=== PATIENT | female | born 1975 | race Caucasian/White ===

== ENCOUNTER 2021-09-09 19:18 | Emergency (ER) | payer OTHER ==
[~2021-09-09] VITALS: Ht 167.6 cm; Wt 132.4 kg
[2021-09-09 20:45] LABS: MCH 13.2 pg (26.0-34.0); MCHC 26.3 g/dL (28.0-37.0); MCV 50.2 fL (80.0-100.0); PLATELET COUNT 354 thou/uL (150-400); RBC 4.57 mil/uL (4.20-5.00); RDW 23.4 % (10.5-14.5); WBC 4.7 thou/uL (4.0-11.0)
[2021-09-09 20:46] LABS: CALCIUM 8.6 mg/dL (8.5-10.1); POTASSIUM 3.3 mmol/L (3.5-5.1)
[2021-09-09 20:47] LABS: URINE BILIRUBIN NEGATIVE (Negative); URINE BLOOD NEGATIVE (Negative); URINE CLARITY CLEAR; URINE COLOR YELLOW; URINE GLUCOSE-RANDOM* NEGATIVE (Negative); URINE KETONES NEGATIVE (Negative); URINE LEUKOCYTES-REFLEX NEGATIVE (Negative); URINE NITRITE-REFLEX NEGATIVE (Negative); URINE PROTEIN (DIPSTICK) TRACE (Negative); URINE SPECIFIC GRAVITY >= 1.030 (1.005-1.035); URINE UROBILINOGEN 0.2 E.U./dl (0.2-1.0)
[2021-09-09 20:52] LABS: ALBUMIN 3.3 g/dL (3.4-5.0); TOTAL BILIRUBIN 0.5 mg/dL (0.2-1.0)
[2021-09-09 22:11] LABS: APTT 30.3 Seconds (24.5-32.8); INR 1.07; PROTIME 11.6 Seconds (10.5-12.1)
[2021-09-09 22:34] LABS: ABSOLUTE NEUTROPHILS 3.6 thou/uL (1.4-8.2)
[2021-09-09 22:35] LABS: ANISOCYTOSIS 3+; HYPOCHROMASIA 3+; MICROCYTES 3+; OVALOCYTES 1+; PLATELET ESTIMATE NORMAL; POIKILOCYTOSIS 2+; SCHISTOCYTES 1+
[2021-09-10 00:16] VITALS: BP 101/57; BP 102/56; BP 111/67; BP 125/81; BP 136/70
[2021-09-10 04:00] VITALS: BP 109/56
--- NOTE | 2021-09-10 14:58 | EKG ---
[address] [address] ELECTROCARDIOGRAM REPORT Name: TIP FREEMAN Room #: [facility]#: [id number] Admission: 09/09/21 Attend Phys: Discharge: 09/10/21 Date of : 71 Report #: [id number] ED Test Date: 2021-09-09 Test Time: 19:29:17 Pat Name: TIP FREEMAN Department: Room: Gender: F Ambulance Operations Supervisor: quin[place] : 1975 Requested By: Alan Awan Order Number: [id number] MD: Gilberto Esposito Measurements Intervals [place] Rate: 119 P: 39 DE: 136 QRS: 1 QRSD: 88 T: 31 QT: 306 QTc: 431 Interpretive Statements Sinus tachycardia No previous ECG available for comparison Electronically Signed On 09-10-2021 14:57:55 CDT by Gilberto Esposito [email or web address] <ELECTRONICALLY SIGNED> By: Gilberto Esposito MD, [facility] 09/10/21 1457 1929 1929 Gilberto Esposito MD, FACC /EPI
== END 2021-09-10 04:07 | disposition home or self-care (01) ==
LOC: ER 19:18
PROVIDERS: Emergency Medicine
DX: U07.1 COVID-19 (principal); K80.00 Calculus of gallbladder with acute cholecystitis without obstruction; R10.31 Right lower quadrant pain; D64.9 Anemia, unspecified; Z90.89 Acquired absence of other organs

== ENCOUNTER 2021-09-12 14:06 | Emergency (ER) | payer OTHER ==
[~2021-09-12] VITALS: Ht 167.6 cm; Wt 131.5 kg
--- NOTE | ~2021-09-12 | EMS ---
[place] [address] EMS Patient Care Report Name: TIP FREEMAN Room #: [facility]#: [id number] Admission: 09/12/21 Attend Phys: Discharge: Date of : 71 Report #: [id number] THIS REPORT FOR: //name// Report Transmitted: 09/12/2021 13:19 EMS Care Summary [place], [place]/[facility] Incident [id number] @ 09/12/2021 13:29 Incident [address] [place] [address] Patient TIP MOLINA Female, 45 Years 1975 Patient Address [address] [place] [address] Patient History Gastric Ulcer,Urinary Tract Infection (UTI),Gallbladder Disease, Patient Allergies Aspirin, Patient Medications Ibuprofen, Benadryl, Chief Complaint Nausea/Vomiting Disposition Transported No Lights/[place] Dispatch Reason Sick Person Transported To [facility] Narrative Medic 41 dispatched to a residence on a sick. [address] [address] EMS Patient Care Report Name: TIP FREEMAN Room #: [facility]#: [id number] Admission: 09/12/21 Attend Phys: Discharge: Date of : 71 Report #: [id number] Patient states she has a history of ulcers and has a bad gallbladder. Patient states she has been in the bathroom all day and recently vomited about one hour ago. Vomit was said to be dark in color by patient. Patient also states she had a rapid test done for covid 19 which came back positive. Patient was seen last Tuesday for the same reason. Upon EMS arrival patient met EMS at her door and walked to the ambulance. Patient was sat on the bench seat where seat restraints were applied and vitals were assessed. Vitals were monitored en route to [facility] where patient was sat in ER bed 11 and care was transferred to receiving RN. EMS back in service with no further incident. Initial Vitals @13:49P: 100,R: 16,BP: 130/66,Pain: 8/10,GCS: 15,SpO2: 94,Revised Trauma: 12, @13:51P: 98,R: 17,BP: 128/72,Pain: 8/10,GCS: 15,SpO2: 94,Revised Trauma: 12, Assessments @13:52MENTAL:Time Oriented,Place Oriented,Event Oriented,Person Oriented,SKIN:HEENT:Eyes: Right Pupil: 3-mm,Eyes: Left Pupil: 3-mm,LUNG SOUNDS:General: Vomiting,Right Upper: Other,Left Upper: Other,ABDOMEN:General: Vomiting,Right Upper: Other,Left Upper: Other,PELVIS//GI:EXTREMITIES:Capillary Refill: Left Upper: < 2 Sec,PULSE:Radial: 2+ Normal,NEURO: Impression Vomiting Procedures @13:52 ALS Assessment Response: UnchangedSucceeded @13:52 BLS Assessment Response: Unchanged Timeline 13:27,Call Received 13:27,Dispatch Notified 13:29,Dispatched 13:30,En Route 13:41,On Scene 13:44,At Patient 13:49,BP: 130/66 M,PULSE: 100,RR: 16 R,SPO2: 94 Ox,ETCO2: ,BG: ,PAIN: 8,GCS: 15, 13:50,Depart Scene 13:51,BP: 128/72 M,PULSE: 98,RR: 17 R,SPO2: 94 Ox,ETCO2: ,BG: ,PAIN: 8,GCS: 15, 13:52,ALS Assessment,Response: UnchangedSucceeded, 13:52,BLS Assessment,Response: Unchanged 14:01,At Destination [address] [address] EMS Patient Care Report Name: TIP FREEMAN Room #: [facility]#: [id number] Admission: 09/12/21 Attend Phys: Discharge: Date of : 71 Report #: [id number] 14:12,Call Closed Disclaimer [email or web address] Copyright 2020 [employer] This EMS Care Summary contains data elements from the applicable legal record (which may be displayed differently). It is designed to provide pertinent information for the following purposes: continuity of care, clinical quality, and state data reporting. The complete legal record is available to ED staff and administrators of the receiving hospital in [employer]'s Patient Tracker. All data is provided "as is."
[2021-09-12 14:41] LABS: HEMOGLOBIN 6.8 gm/dL (12.0-15.0)
[2021-09-12 14:42] LABS: ABSOLUTE NEUTROPHILS 4.2 thou/uL (1.4-8.2); BASOPHILS 0.4 % (0.0-2.0); EOSINOPHILS 0.7 % (0.0-3.0); HEMATOCRIT 25.6 % (37.0-47.0); LYMPHOCYTES 12.7 % (24.0-44.0); MCH 14.5 pg (26.0-34.0); MCHC 26.6 g/dL (28.0-37.0); MCV 54.4 fL (80.0-100.0); MONOCYTES 6.5 % (1.0-8.0); POLYS 79.7 % (36.0-66.0); RBC 4.72 mil/uL (4.20-5.00); RDW 24.9 % (10.5-14.5); WBC 5.3 thou/uL (4.0-11.0)
[2021-09-12 14:46] LABS: PLATELET COUNT 263 thou/uL (150-400)
[2021-09-12 14:54] LABS: CALCIUM 8.3 mg/dL (8.5-10.1); CREATININE 0.9 mg/dL (0.6-1.0); POTASSIUM 3.1 mmol/L (3.5-5.1)
[2021-09-12 15:00] LABS: ALBUMIN 3.1 g/dL (3.4-5.0); TOTAL BILIRUBIN 0.5 mg/dL (0.2-1.0); TOTAL PROTEIN 7.6 g/dL (6.4-8.2)
[2021-09-12] MEDS ORDERED: LEVOFLOXACIN750 MG PO (16:27)
[2021-09-12] MEDS ORDERED: DECADRON6 MG PO (16:27)
[2021-09-12] MEDS ORDERED: FLAGYL500 M1 PO (16:27)
[2021-09-12 16:38] LABS: TARGET CELLS 1+
[2021-09-12 16:39] LABS: ANISOCYTOSIS 3+; HYPOCHROMASIA 3+; MICROCYTES 3+; OVALOCYTES 1+; SCHISTOCYTES FEW
[2021-09-12 17:03] VITALS: BP 113/55; BP 116/67; BP 126/57
[2021-09-12 21:05] VITALS: BP 148/76
== END 2021-09-12 21:10 | disposition left against medical advice (07) ==
LOC: ER 14:06
PROVIDERS: Emergency Medicine
DX: U07.1 COVID-19 (principal); J12.82 Pneumonia due to coronavirus disease 2019; K52.9 Noninfective gastroenteritis and colitis, unspecified; D64.9 Anemia, unspecified; Z90.49 Acquired absence of other specified parts of digestive tract; Z87.442 Personal history of urinary calculi